=== PATIENT | female | born 1955 | race African-American/Black ===

== ENCOUNTER 2022-04-24 08:55 | Observation (INO) ==
[2022-04-19 11:18] LABS: Basophils % 0.6 % (0.0-0.8); Eosinophils # 0.1 10*3/uL (0.0-0.87); Eosinophils % 1.6 % (0.00-10.9); Hematocrit 42.5 VOL% (35.7-47.0); Hemoglobin 13.6 GM/DL (12.0-16.0); Immature Granulocytes % 0.3 %; Immature Granulocytes Absolute 0.02 #; Lymphocytes # 1.9 10*3/uL (1.4-4.0); Lymphocytes % 27.8 % (21.3-54.2); Mean Platelet Volume 10.2 FL (9.6-12.0); Monocytes # 0.4 10*3/uL (0.11-0.8); Monocytes % 5.6 % (1.7-12.7); Neutrophils % 64.1 % (38.7-73.9); Platelet Count 394 T/CUMM (130-400); Red Blood Count 4.83 MC/CUMM (3.8-5.5); Red Cell Distribution Width 15.3 % (9.3-17.3); White Blood Count 6.8 T/CUMM (4-12)
[2022-04-19 11:39] LABS: Albumin 3.5 G/DL (3.4-5.0); Bilirubin,Total 0.5 MG/DL (0.20-1.00); Calcium 10.1 MG/DL (8.5-10.1); Osmolality,Calculated 286.1 MOS/KG (273-304); Potassium 3.8 MMOL/L (3.5-5.1); Total Protein 7.7 G/DL (6.4-8.2)
[2022-04-24] MEDS ORDERED: LACTATED RINGERS 1,000 ML IV SCH (09:30)
[2022-04-24] MEDS ORDERED: DIAZEPAM 5 MG TABLET PO ONE (09:45)
[2022-04-24] MEDS ORDERED: FAMOTIDINE 20 MG TABLET PO ONE (09:45)
[2022-04-24] MEDS ORDERED: BUPIVACAINE MPF 0.25% 10 ML VIAL ONE (12:00)
[2022-04-24] MEDS ORDERED: TISSUE ADHESIVE 1 EACH APPLICATOR TOP ONE (12:00)
[2022-04-24] MEDS ORDERED: LIDOCAINE 1%/EPI INJ 20 ML VIAL ONE (12:01)
[2022-04-24] MEDS ORDERED: fentaNYL 100 MCG/2 ML VIAL ONE (12:13)
[2022-04-24] MEDS ORDERED: propofoL 200 MG/20 ML VIAL IV ONE (12:13)
[2022-04-24] MEDS ORDERED: LIDOCAINE 2% 5 ML VIAL ONE (12:13)
[2022-04-24] MEDS ORDERED: ROCURONIUM 50 MG/5 ML VIAL IV ONE (12:13)
[2022-04-24] MEDS ORDERED: SEVOFLURANE 1 UNIT/15 MINUTE INH ONE ×2 (12:20→13:41)
[2022-04-24] MEDS ORDERED: PHENYLEPHRINE 1 MG/10 ML SYRINGE IV ONE (12:58)
[2022-04-24] MEDS ORDERED: ONDANSETRON 4 MG/2 ML VIAL ONE (12:58)
[2022-04-24] MEDS ORDERED: DEXAMETHASONE 4 MG/1 ML VIAL ONE (12:58)
[2022-04-24] MEDS ORDERED: GLYCOPYRROLATE 0.4 MG/2 ML VIAL ONE ×2 (12:58→13:26)
[2022-04-24] MEDS ORDERED: SODIUM CHLORIDE 0.9% 1,000 ML IV ONE (13:19)
[2022-04-24] MEDS ORDERED: NEOSTIGMINE 10 MG/10 ML VIAL ONE (13:26)
[2022-04-24] MEDS: HYDROmorphone 1 MG/1 ML SYRINGE IV PRN ×2 (14:04→14:15)
[2022-04-24] MEDS ORDERED: HYDROmorphone 1 MG/1 ML SYRINGE ONE (14:04)
[2022-04-24] MEDS ORDERED: ONDANSETRON 4 MG/2 ML VIAL IM STA (17:10)
[2022-04-24] MEDS ORDERED: ONDANSETRON 4 MG/2 ML VIAL IV STA (17:19)
[2022-04-24] MEDS ORDERED: MORPHINE 2 MG/1 ML SYRINGE IV PRN (17:45)
[2022-04-24] MEDS ORDERED: ONDANSETRON 4 MG/2 ML VIAL IV PRN (17:46)
[2022-04-24] MEDS: LACTATED RINGERS 1,000 ML IV SCH (18:02)
[2022-04-25] MEDS: LACTATED RINGERS 1,000 ML IV SCH (05:43)
[2022-04-25 07:51] VITALS: BP 121/73
[2022-04-25] MEDS ORDERED: CHLORTHALIDONE 25 MG TABLET PO SCH (09:00)
[2022-04-25] MEDS ORDERED: ASPIRIN CHEW 81 MG TABLET PO SCH (09:00)
[2022-04-25] MEDS ORDERED: ALPRAZolam 0.5 MG TABLET PO SCH (09:00)
[2022-04-25] MEDS ORDERED: POTASSIUM CHLORIDE 10 MEQ TABLET PO SCH (09:00)
[2022-04-25] MEDS ORDERED: ATORVASTATIN 20 MG TABLET PO SCH (21:00)
== END 2022-04-25 10:30 | disposition home or self-care (01) ==
LOC: N.OR 08:55 → N.SDSINP 08:55 → N.3E 08:55 → N.SDSINP 08:56 → N.3E 18:01
PROVIDERS: ADMIT Surgery; ATTEND Surgery
PROC: LAPCHOL (2022-04-24 12:37)